=== PATIENT | female | born 1995 | race Caucasian/White ===

== ENCOUNTER 2018-01-24 15:00 | Emergency (ER) | payer SELFPAY ==
[2018-01-24 15:23] LABS: Urine Blood 2+ (NEG); Urine Glucose 2+ (NEG); Urine Protein 3+ (NEG); Urine Specific Gravity >1.030 (1.005-1.030); Urine pH 5.5 (5.0-7.0)
[2018-01-24 15:30] LABS: Urine Bacteria 20-50 /HPF (<20); Urine Culture Reflex Order REFLEXED; Urine Mucus 2+ /HPF (NONE SEEN)
--- NOTE | 2018-01-24 15:48 | EDPHYS ---
Physician Documentation [facility] Name: Madelyn Slater Age: 22 yrs Sex: Female : 1995 Arrival Date: 01/24/2018 Time: 15:07 Bed 23 Private MD: None, None ED Physician Lon Neves HPI: 01/24 15:41 This 22 yrs old Female presents to ER via Ambulatory with complaints of cp Urinary Problem. 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 - Social history:: Smoking status: Patient uses tobacco products, smokes one pack cigarettes per day. - Ebola Screening: : Patient denies travel to an Ebola-affected area in the 21 days before illness onset. ROS: 15:41 Eyes: Negative for injury, pain, redness, and discharge. cp 15:41 Constitutional: Negative for body aches, chills, fever, poor PO intake. 15:41 ENT: Negative for drainage from ear(s), ear pain, sore throat, difficulty swallowing, difficulty handling secretions. 15:41 Cardiovascular: Negative for chest pain, edema, palpitations. 15:41 Respiratory: Negative for cough, shortness of breath, wheezing. 15:41 Abdomen/GI: Positive for abdominal pain, of the suprapubic area, Negative for vomiting, diarrhea, constipation, anorexia. 15:41 Back: Positive for radiated pain, of the right low back. 15:41 : Positive for urinary symptoms, Negative for vaginal bleeding, vaginal discharge. 15:41 Skin: Negative for cellulitis, rash. 15:41 Neuro: Negative for altered mental status, headache, weakness. 15:41 All other systems are negative. Exam: 15:44 Constitutional: The patient appears in no acute distress, alert, awake, non-toxic, well cp developed, well nourished. 15:44 Head/Face: Normocephalic, atraumatic. cp 15:44 Eyes: Periorbital structures: appear normal, Conjunctiva: normal, no exudate, no injection, Lids and lashes: appear normal, bilaterally. 15:44 ENT: External ear(s): are unremarkable, Nose: is normal, Mouth: Lips: moist, Oral mucosa: pink and intact, moist, Posterior pharynx: is normal, airway is patent. 15:44 Neck: ROM/movement: is normal, is supple, without pain, no range of motions limitations, no nuchal rigidity. 15:44 Chest/axilla: Inspection: normal, Palpation: is normal, no crepitus, no tenderness. 15:44 Cardiovascular: Rate: normal, Rhythm: regular. 15:44 Respiratory: the patient does not display signs of respiratory distress, Respirations: normal, no use of accessory muscles, no retractions, no splinting, no tachypnea, labored breathing, is not present, Breath sounds: are clear throughout, no decreased breath sounds, no stridor, no wheezing. 15:44 Abdomen/GI: Inspection: abdomen appears normal, Bowel sounds: active, all quadrants, Palpation: soft, in all quadrants, mild abdominal tenderness, in the suprapubic area, rebound tenderness, is not appreciated, involuntary guarding, is not appreciated. 15:44 Back: pain, that is mild, of the right low back. 15:44 Skin: cellulitis, is not appreciated, no rash present. Vital Signs: 15:12 BP 130 / 74; Pulse 99; Resp 18; Temp 98.3; Pulse Ox 98% on R/A; Weight 68.04 kg (R); aj1 Height 5 ft. 4 in. (162.56 cm) (R); Pain 4/10; 16:11 BP 110 / 68; Pulse 86; Resp 17; Pulse Ox 99% on R/A; kr2 15:12 Body Mass Index 25.75 (68.04 kg, 162.56 cm) aj1 MDM: 15:15 Patient medically screened. cp 15:47 Data reviewed: vital signs, nurses notes, lab test result(s). cp 15:47 Counseling: I had a detailed discussion with the patient and/or guardian regarding: the cp historical points, exam findings, and any diagnostic results supporting the discharge/admit diagnosis, lab results, to return to the emergency department if symptoms worsen or persist or if there are any questions or concerns that arise at home. 01/24 15:16 Order name: Urine Microscopic Only; Complete Time: 15:39 jr8 01/24 15:39 Interpretation: Normal except: UWBC LOADED; URBC 10-20; UBACT 20-50; SQEPI 5-10. cp 01/24 15:20 Order name: Urine Dipstick--Ancillary (enter results); Complete Time: 15:39 ag 01/24 15:16 Order name: Urine Test (obtain specimen); Complete Time: 15:18 jr8 01/24 15:20 Order name: Urine --Ancillary (enter results); Complete Time: 15:39 ag 01/24 15:32 Order name: Urine Culture EDMS 01/24 15:16 Order name: Urine Dipstick-Ancillary (obtain specimen); Complete Time: 15:18 01/24 15:26 Order name: Accucheck Blood Glucose; Complete Time: 15:31 cp Administered Medications: 15:53 Drug: Rocephin (cefTRIAXone) 1 grams Route: IM; Site: left gluteus; kr2 16:11 Follow up: Response: No adverse reaction kr2 Point of Care Testing: Blood Glucose: 15:31 Blood Glucose: 93 mg/dL; kr2 Ranges: Critical Glucose Levels:Adult <50 mg/dl or >400 mg/dl <40 mg/dl or >180 mg/dl Disposition: 01/25 10:31 Co-signature as Attending Physician, Lon Neves MD. Disposition: 01/24/18 15:47 Discharged to Home. Impression: Urinary tract infection, site not specified. - Condition is Stable. - Discharge Instructions: Urinary Tract Infection. - Prescriptions for Pyridium 200 mg Oral Tablet - take 1 tablet by ORAL route every 8 hours for 3 days; 6 tablet. Bactrim DS 800- 160 mg Oral Tablet - take 1 tablet by ORAL route every 12 hours for 7 days; 14 tablet. - Medication Reconciliation Form, Thank You Letter, Antibiotic Education, Prescription Opioid Use form. - Follow up: Private Physician; When: 2 - 3 days; Reason: Recheck today's complaints. - Problem is new. - Symptoms have improved. Signatures: Dispatcher [facility] Florencia Justice RN RN aj1 Rui Gaspar PA PA jr8 Dean Bowen PA PA cp Starr, Gregory, MD MD [facility], Joy, RN RN kr2 Corrections: (The following items were deleted from the chart) 01/24 16:11 15:47 01/24/2018 15:47 Discharged to Home. Impression: Urinary tract infection, site kr2 not specified. Condition is Stable. Forms are Medication Reconciliation Form, Thank You Letter, Antibiotic Education, Prescription Opioid Use. Follow up: Private Physician; When: 2 - 3 days; Reason: Recheck today's complaints. Problem is new. Symptoms have improved. cp
--- NOTE | 2018-01-24 15:48 | ER ---
Nurse's Notes [facility] Name: Madelyn Slater Age: 22 yrs Sex: Female : 1995 Arrival Date: 01/24/2018 Time: 15:07 Bed 23 Private MD: None, None Diagnosis: Urinary tract infection, site not specified Presentation: 01/24 15:08 Presenting complaint: Patient states: "About a week ago I thought I had a UTI so I aj1 started drinking a bunch of water and cranberry juice, but its just been getting worse and the pain is going up into my stomach" Reports dysuria, urinary frequency, urgency, nausea. Denies vomiting, fever. Transition of care: patient was not received from another setting of care. Onset of symptoms was January 17, 2018. Risk Assessment: Do you want to hurt yourself or someone else? Patient reports no desire to harm self or others. Initial Sepsis Screen: Does the patient meet any 2 criteria? No. Patient's initial sepsis screen is negative. Does the patient have a suspected source of infection? No. Patient's initial sepsis screen is negative. Care prior to arrival: None. 15:08 Method Of Arrival: Ambulatory aj1 15:08 Acuity: NANCY 4 aj1 Triage Assessment: 15:12 General: Appears in no apparent distress. comfortable, Behavior is calm, cooperative, aj1 appropriate for age. Pain: Complains of pain in suprapubic area, right lower quadrant and left lower quadrant Pain does not radiate. Pain currently is 4 out of 10 on a pain scale. at worst was 9 out of 10 on a pain scale. Quality of pain is described as burning, crampy, Pain began one week ago Is intermittent, Aggravated by urinating. Neuro: Level of Consciousness is awake, alert, obeys commands, Oriented to person, place, time, situation, Speech is normal, Facial symmetry appears normal. Cardiovascular: Patient's skin is warm and dry. Respiratory: Airway is patent Respiratory effort is even, unlabored, Respiratory pattern is regular, symmetrical. GI: Reports nausea, Patient currently denies diarrhea, vomiting. : Reports burning with urination, urgency, urinary frequency. Derm: Skin is pink, warm \\T\\ dry. normal. 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 - Social history:: Smoking status: Patient uses tobacco products, smokes one pack cigarettes per day. - Ebola Screening: : Patient denies travel to an Ebola-affected area in the 21 days before illness onset. Screenin:34 Abuse screen: Denies threats or abuse. Denies injuries from another. Nutritional kr2 screening: No deficits noted. Tuberculosis screening: No symptoms or risk factors identified. Fall Risk None identified. Assessment: 15:32 General: Appears in no apparent distress. comfortable, well developed, well nourished, kr2 Behavior is calm, cooperative, appropriate for age. Pain: Complains of pain in suprapubic area Pain radiates to abdomen Pain currently is 3 out of 10 on a pain scale. Quality of pain is described as burning, tender, Is intermittent, Alleviated by rest, Aggravated by full bladder, urination. Neuro: Level of Consciousness is awake, alert, obeys commands, Oriented to person, place, time, situation, Appropriate for age. Cardiovascular: Capillary refill < 3 seconds in bilateral fingers Patient's skin is warm and dry. Respiratory: Airway is patent Respiratory effort is even, unlabored, Respiratory pattern is regular, symmetrical. GI: Abdomen is flat, non-distended, Bowel sounds present X 4 quads. Patient currently denies diarrhea, vomiting. : Reports burning with urination, pain in suprapubic area. EENT: Oral mucosa is moist. Derm: Skin is intact, is healthy with good turgor, Skin is pink, warm \\T\\ dry. Musculoskeletal: Circulation, motion, and sensation intact. 16:10 Reassessment: Patient appears in no apparent distress at this time. Patient and/or kr2 family updated on plan of care and expected duration. Pain level reassessed. Patient is alert, oriented x 3, equal unlabored respirations, skin warm/dry/pink. Vital Signs: 15:12 BP 130 / 74; Pulse 99; Resp 18; Temp 98.3; Pulse Ox 98% on R/A; Weight 68.04 kg (R); aj1 Height 5 ft. 4 in. (162.56 cm) (R); Pain 4/10; 16:11 BP 110 / 68; Pulse 86; Resp 17; Pulse Ox 99% on R/A; kr2 15:12 Body Mass Index 25.75 (68.04 kg, 162.56 cm) aj1 ED Course: 15:07 Patient arrived in ED. mr 15:07 None, None is Private Physician. mr 15:10 Triage completed. aj1 15:12 Arm band placed on Patient placed in an exam room. aj1 15:15 Dean Bowen PA is PHCP. cp 15:15 Lon Neves MD is Attending Physician. cp 15:16 Joy Rouse, RN is Primary Nurse. kr2 15:34 Patient has correct armband on for positive identification. Bed in low position. Call kr2 light in reach. Side rails up X 1. Pulse ox on. NIBP on. Door closed. Warm blanket given. Head of bed elevated. 16:10 No provider procedures requiring assistance completed. Patient did not have IV access kr2 during this emergency room visit. Administered Medications: 15:53 Drug: Rocephin (cefTRIAXone) 1 grams Route: IM; Site: left gluteus; kr2 16:11 Follow up: Response: No adverse reaction kr2 Point of Care Testing: Blood Glucose: 15:31 Blood Glucose: 93 mg/dL; kr2 Ranges: Outcome: 15:47 Discharge ordered by MD. cp 16:10 Discharged to home ambulatory. kr2 16:10 Condition: good 16:10 Discharge instructions given to patient, Instructed on discharge instructions, follow up and referral plans. medication usage, Demonstrated understanding of instructions, follow-up care, medications, Prescriptions given X 2. 16:11 Patient left the ED. kr2 Addendum: 01/31/2018 08:55 Addendum: Culture Results: Positive urine culture. Phone call Attempt #1 called patient s s who reports she does not have a doctor to follow up with, but is no longer having any urinary s/s, and feel 100% better at this time. Pt educated on the importance of obtaining PCP for close follow up care and seeking further medical care if necessary. Signatures: Florencia Justice RN RN [facility] Chela Garcia mr Rosangela Green RN RN Dean Bowen PA PA cp Joy Rouse, RN RN kr2
[2018-01-24] MEDS ORDERED: LIDOCAINE 1% MPF 5 ML VIAL ONE (15:50)
[2018-01-24] MEDS ORDERED: CEFTRIAXONE 1000 MG/VIAL ONE (15:50)
== END 2018-01-24 16:11 | disposition home or self-care (01) ==
LOC: ER 15:00
DX: N39.0 Urinary tract infection, site not specified (principal); F17.210 Nicotine dependence, cigarettes, uncomplicated; Z88.6 Allergy status to analgesic agent; Z91.018 Allergy to other foods
CPT/HCPCS: 81003; 81015; 81025; 82962; 87077; 87086; 87088; 87186; 96372; 99283